=== PATIENT | male | born 1990 | race Caucasian/White ===

== ENCOUNTER 2020-11-25 13:45 | Outpatient (CLI) | payer OTHER, SELFPAY ==
[2020-11-26 18:38] LABS: SARS-CoV-2 RNA PCR Negative
== END 2020-11-25 13:46 | disposition home or self-care (01) ==
PROVIDERS: PCP Family Medicine; Visit Provider Family Medicine
DX: Z20.828 Contact with and (suspected) exposure to other viral communicable diseases (principal)
CPT/HCPCS: 87635; C9803; U0003

== ENCOUNTER 2021-08-18 10:16 | Outpatient (NON) | payer OTHER, SELFPAY | END 2021-08-18 10:17 | disposition home or self-care (01) | LOC: CHSLAB 10:17 | PROVIDERS: Visit Provider Nurse Practitioner Family | DX: Z20.2 Contact with and (suspected) exposure to infections with a predominantly sexual mode of transmission (principal) | CPT/HCPCS: 87491; 87591; 87661 ==

== ENCOUNTER 2022-10-04 09:01 | Outpatient (CLI) | payer OTHER, SELFPAY | END 2022-10-04 09:02 | disposition home or self-care (01) | LOC: CHSAUDIO 09:03 | PROVIDERS: PCP Family Medicine; Visit Provider Family Medicine | DX: H91.90 Unspecified hearing loss, unspecified ear (principal) | CPT/HCPCS: 92557; 92567 ==

== ENCOUNTER 2023-01-12 15:01 | Outpatient (CLI) | payer OTHER, SELFPAY ==
[2023-01-12 15:17] LABS: Hematocrit 40.9 % (40.0-54.0); Hemoglobin 14.5 g/dL (14.0-18.0); Mean Corpuscular HGB Conc 35.5 g/dL (32.0-36.0); Mean Corpuscular Hemoglobin 30.5 pg (27.0-31.0); Mean Corpuscular Volume 86.1 fL (78.0-102.0); Mean Platelet Volume 8.8 fl (8.7-11.0); Platelet Count Result 306 K/mm3 (150-420); Red Blood Count 4.75 M/mm3 (4.70-6.10); Red Cell Distribution Width 11.6 % (11.6-14.4); White Blood Count 8.8 K/mm3 (4.8-10.8)
[2023-01-12 15:45] LABS: Alanine Aminotransferase 68 U/L (16-63); Alkaline Phosphatase 99 U/L (46-116); Anion Gap 8 mmol/L (8-16); Aspartate Amino Transferase 29 U/L (15-37); Bilirubin,Total 0.8 mg/dL (0.00-1.00); Blood Urea Nitrogen 12 mg/dL (7-18); CRP 7.9 mg/dL (0.0-0.9); Calcium 8.7 mg/dL (8.5-10.1); Carbon Dioxide 33 mmol/L (21-32); Chloride 97 mmol/L (98-108); Estimated Glomerular Filt Rate > 60; Glucose 97 mg/dL (70-99); Lipase 44 U/L (16-77); Osmolality Calculated 285 mOsm/kg (285-295); Potassium 3.2 mmol/L (3.5-5.1); Sodium 138 mmol/L (136-145); Total Protein 7.9 g/dL (6.4-8.2)
== END 2023-01-12 15:02 | disposition home or self-care (01) ==
LOC: CHSLAB 15:05
PROVIDERS: PCP Family Medicine; Visit Provider Family Medicine
DX: R10.9 Unspecified abdominal pain (principal); A05.9 Bacterial foodborne intoxication, unspecified
CPT/HCPCS: 36415; 80053; 83690; 85027; 86140

== ENCOUNTER 2025-05-23 13:35 | Emergency (ER) | payer OTHER, SELFPAY ==
[2025-05-23 13:35] VITALS: BP 118/81; PULSE 78; RESP 16; TEMP 36.9; O2SAT 97
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
== END 2025-05-23 13:50 | disposition home or self-care (01) ==
LOC: CHSED 13:54
PROVIDERS: Emergency Provider Emergency Medicine; PCP Family Medicine
DX: T23.002A Burn of unspecified degree of left hand, unspecified site, initial encounter (principal); T23.001A Burn of unspecified degree of right hand, unspecified site, initial encounter; T31.0 Burns involving less than 10% of body surface; W86.8XXA Exposure to other electric current, initial encounter; Z87.891 Personal history of nicotine dependence
CPT/HCPCS: 99281